=== PATIENT | male | born 1995 | race Caucasian/White ===

== ENCOUNTER 2018-03-07 11:03 | Emergency (ER) | payer SELFPAY ==
[~2018-03-07] VITALS: Ht 180.3 cm; Wt 70.5 kg
[2018-03-07 11:09] VITALS: BP 138/80
[2018-03-07 11:19] LABS: GLUCOSE,POINT OF CARE 110 MG/DL (70-110)
== END 2018-03-07 12:32 | disposition left against medical advice (07) ==
LOC: EMS 11:06
DX: B34.9 Viral infection, unspecified (principal); F12.90 Cannabis use, unspecified, uncomplicated; F17.210 Nicotine dependence, cigarettes, uncomplicated
CPT/HCPCS: 99282